=== PATIENT | female | born 1995 | race African-American/Black ===

== ENCOUNTER 2017-07-23 03:00 | Emergency (ER) | payer SELFPAY ==
[~2017-07-23] VITALS: Ht 152.4 cm; Wt 93.6 kg
[~2017-07-23 03:00] MED LIST: CEFTIN500 MG PO; DOXYCYCLINE 10100 MG PO; LEVEMIR100 U/ML SC; NORCO 325 MG-51 TAB PO; NOVOLOG 100U100 U/M1 SQ
[2017-07-23 03:03] VITALS: TEMP 98.6
[2017-07-23] MEDS ORDERED: OMNICEF 300MG300 MG PO (03:07)
[2017-07-23 04:09] LABS: BASO % 0.2 % (0.0-2.0); EOS % 0.1 % (0-4.0); GRAN # 9.1 (1.4-6.5); GRAN % 65.5 % (42.2-75.2); HEMATOCRIT 47.9 % (37.0-47.0); HEMOGLOBIN 15.3 g/dl (12.5-16.0); LYMPH # 3.7 (1.2-3.4); LYMPH % 26.5 % (20.0-51.0); MEAN CELL VOLUME 82 fl (80.0-100.0); MEAN CORPUSCULAR HEMOGLOBIN 26 pg (27.0-31.0); MEAN CORPUSCULAR HGB CONC 32 g/dl (33.0-37.0); MEAN PLATELET VOLUME 9.5 fl (7.4-10.4); MONO % 7.3 % (1.7-9.3); PLATELET COUNT 255 K/mm3 (130-400); RED BLOOD COUNT 5.82 M/mm3 (4.10-5.30); REDCELL DISTRIBUTION WIDTH-CV 12.9 % (11.5-14.5)
[2017-07-23 04:34] LABS: ERYTHROCYTE SEDIMENTATION RATE 7 mm/hr (0-20)
[2017-07-23 04:45] LABS: ALBUMIN 4.5 gm/dL (3.5-5.0); BILIRUBIN,TOTAL 0.4 mg/dL (0.0-1.0); CALCIUM 9.2 mg/dL (8.4-10.2); CREATININE, serum 0.49 mg/dL (0.52-1.25); POTASSIUM 3.9 mmol/L (3.4-5.0); TOTAL PROTEIN 7.7 gm/dL (6.4-8.2)
[2017-07-23] MEDS ORDERED: CLEOCIN HCL300 MG PO (06:36)
[2017-07-23 07:00] VITALS: BP 143/93; PULSE 108
== END 2017-07-23 07:02 | disposition home or self-care (01) ==
LOC: COL.ER 03:00
PROVIDERS: Emergency Medicine
DX: L03.811 Cellulitis of head [any part, except face] (principal); E11.9 Type 2 diabetes mellitus without complications; Z79.4 Long term (current) use of insulin
CPT/HCPCS: J1815; J7030

== ENCOUNTER 2017-07-25 09:25 | Emergency (ER) | payer SELFPAY ==
[~2017-07-25] VITALS: Ht 152.4 cm; Wt 93.6 kg
[~2017-07-25 09:25] MED LIST changes: +CLEOCIN HCL300 MG PO; +OMNICEF 300MG300 MG PO
[2017-07-25 09:32] VITALS: BP 146/88; PULSE 98; TEMP 98.4
== END 2017-07-25 10:16 | disposition home or self-care (01) ==
LOC: COL.ER 09:25
DX: E11.9 Type 2 diabetes mellitus without complications (principal); L03.811 Cellulitis of head [any part, except face]; Z79.4 Long term (current) use of insulin

== ENCOUNTER → 2017-10-10 | Outpatient (CLI) | payer OTHER | LOC: COL.RAD 09:27 | DX: Z02.71 Encounter for disability determination (principal) ==

== ENCOUNTER 2018-11-25 12:38 | Emergency (ER) | payer SELFPAY ==
[~2018-11-25] VITALS: Ht 152.4 cm; Wt 93.2 kg
[2018-11-25 12:45] VITALS: TEMP 97.9
[2018-11-25 13:15] LABS: COLLECTION METHOD CLEAN CATCH
[2018-11-25 13:24] LABS: MUCOUS Present /lpf; PH 5 (5-8); SQUAMOUS EPITHELIAL 0-2 /hpf; URINE APPEARANCE Hazy; URINE BACTERIA None Seen /hpf; URINE BILIRUBIN Negative (NEGATIVE); URINE BLOOD 1+ (NEGATIVE); URINE COLOR Straw; URINE GLUCOSE 3+ (NEGATIVE); URINE KETONE Negative (NEGATIVE); URINE LEUKOCYTE ESTERASE 2+ (NEGATIVE); URINE NITRATE Negative (NEGATIVE); URINE PROTEIN(semi-quant) Negative (NEGATIVE); URINE UROBILINOGEN Negative (NEGATIVE)
[2018-11-25 14:16] LABS: BASO % 0.2 % (0.0-2.0); EOS % 0.4 % (0-4.0); GRAN # 5.8 (1.4-6.5); GRAN % 56.2 % (42.2-75.2); HEMATOCRIT 47.1 % (37.0-47.0); HEMOGLOBIN 14.7 g/dl (12.5-16.0); LYMPH # 3.7 (1.2-3.4); LYMPH % 36.5 % (20.0-51.0); MEAN CELL VOLUME 80 fl (80.0-100.0); MEAN CORPUSCULAR HEMOGLOBIN 25 pg (27.0-31.0); MEAN CORPUSCULAR HGB CONC 31 g/dl (33.0-37.0); MEAN PLATELET VOLUME 9.3 fl (7.4-10.4); MONO # 0.7 (0.1-0.6); MONO % 6.4 % (1.7-9.3); PLATELET COUNT 279 K/mm3 (130-400); REDCELL DISTRIBUTION WIDTH-CV 13.6 % (11.5-14.5)
[2018-11-25 14:31] LABS: BILIRUBIN,TOTAL 0.2 mg/dL (0.0-1.0); C-REACTIVE PROTEIN 0.8 mg/dL (0.0-0.9); CALCIUM 9.4 mg/dL (8.4-10.2); CREATININE, serum 0.44 (0.52-1.25); POTASSIUM 4.3 mmol/L (3.4-5.0); TOTAL PROTEIN 7.3 gm/dL (6.4-8.2)
[2018-11-25] MEDS ORDERED: DIFLUCAN150 MG PO (14:39)
[2018-11-25] MEDS ORDERED: MACROBID 1100 MG/CAP PO (14:39)
[2018-11-25] MEDS ORDERED: NYSTATIN POWDER30 GM TOP (14:42)
[2018-11-25 15:19] VITALS: BP 116/68; PULSE 98
== END 2018-11-25 15:25 | disposition home or self-care (01) ==
LOC: COL.ER 12:38
PROVIDERS: Physician Assistant
DX: B37.3 Candidiasis of vulva and vagina (principal); N30.90 Cystitis, unspecified without hematuria; L30.4 Erythema intertrigo; E11.65 Type 2 diabetes mellitus with hyperglycemia; Z79.4 Long term (current) use of insulin; Z86.19 Personal history of other infectious and parasitic diseases; Z88.0 Allergy status to penicillin

== ENCOUNTER 2020-09-05 03:42 | Observation (INO) | payer OTHER, MEDICAID ==
[2020-09-05] VITALS (13 sets, daily range): BP systolic 124–146; BP diastolic 68–106; PULSE 81–92; TEMP 98
[~2020-09-05] VITALS: Ht 154.9 cm; Wt 75.0 kg
[~2020-09-05 03:42] MED LIST changes: +DIFLUCAN150 MG PO; +K-DUR 10 MEQ T10 MEQ PO; +MACROBID 1100 MG/CAP PO; +NYSTATIN POWDER30 GM TOP
[2020-09-05 04:25] LABS: BASO % 0.3 % (0.0-2.0); EOS % 0.7 % (0-4.0); GRAN # 2.6 (1.4-6.5); GRAN % 43.9 % (42.2-75.2); HEMATOCRIT 37.3 % (37.0-47.0); HEMOGLOBIN 11.6 g/dl (12.5-16.0); LYMPH # 2.8 (1.2-3.4); LYMPH % 47.1 % (20.0-51.0); MEAN CELL VOLUME 88 fl (80.0-100.0); MEAN CORPUSCULAR HEMOGLOBIN 27 pg (27.0-31.0); MEAN CORPUSCULAR HGB CONC 31 g/dl (33.0-37.0); MEAN PLATELET VOLUME 8.5 fl (7.4-10.4); MONO # 0.5 (0.1-0.6); MONO % 7.8 % (1.7-9.3); PLATELET COUNT 334 K/mm3 (130-400); RED BLOOD COUNT 4.26 M/mm3 (4.10-5.30); REDCELL DISTRIBUTION WIDTH-CV 13.9 % (11.5-14.5)
[2020-09-05 04:36] LABS: ALBUMIN 3.5 gm/dL (3.5-5.0); BILIRUBIN,TOTAL 0.1 mg/dL (0.0-1.0); CALCIUM 8.2 mg/dL (8.4-10.2); CREATININE, serum 0.54 (0.52-1.25); POTASSIUM 3.4 mmol/L (3.4-5.0); TOTAL PROTEIN 6.4 gm/dL (6.4-8.2)
[2020-09-05] MEDS ORDERED: MOTRIN 800800 MG/TAB PO (05:46)
--- NOTE | 2020-09-05 06:10 | NUR ---
Patient to operating room via stretcher from emergency room.
--- NOTE | 2020-09-05 09:20 | NUR ---
Initial visit; Patient thanked Assistant Professor Of [employer] for looking in on her and offering God's blessings and for looking in on her.
--- NOTE | 2020-09-05 09:47 | NUR ---
0900 SITS UP IN BED EATING BREASKFAST. TOLERATES WELL. AMBULATE TO BATHRROM VOIDS LARGE AMOUNT, BLEEDING WNL. 0930 ALL DISCHARGE INSTRUCTIONS GIVEN TO PATIENT AND . VERBAL UNDERSTANDING NOTED.
--- NOTE | 2020-09-05 10:14 | NUR ---
1000 patient ambulate to pov with nurse
== END 2020-09-05 10:00 | disposition home or self-care (01) ==
LOC: COL.ER 03:42 → OB 05:40
PROVIDERS: Emergency Medicine; ADMIT Obstetrics & Gynecology
DX: O72.2 Delayed and secondary postpartum hemorrhage (principal); O90.1 Disruption of perineal obstetric wound; Z98.84 Bariatric surgery status; Z90.49 Acquired absence of other specified parts of digestive tract; Z88.0 Allergy status to penicillin; Z88.1 Allergy status to other antibiotic agents; Z79.899 Other long term (current) drug therapy
CPT/HCPCS: G0378; J0330; J0690; J1885; J2405; J2704; J3010; J7030

== ENCOUNTER 2020-12-03 08:23 | Emergency (ER) | payer OTHER, MEDICAID ==
[~2020-12-03] VITALS: Ht 152.4 cm; Wt 72.7 kg
[~2020-12-03 08:23] MED LIST changes: +MOTRIN 800800 MG/TAB PO
[2020-12-03 09:12] LABS: STREP SCREEN NEGATIVE
[2020-12-03 09:40] VITALS: BP 131/72; PULSE 73
== END 2020-12-03 09:40 | disposition home or self-care (01) ==
LOC: COL.ER 08:23
PROVIDERS: Emergency Medicine
DX: J06.9 Acute upper respiratory infection, unspecified (principal)
CPT/HCPCS: J1100

== ENCOUNTER 2023-05-01 07:16 | Emergency (ER) | payer BC ==
[~2023-05-01] VITALS: Ht 157.5 cm; Wt 85.0 kg
[~2023-05-01 07:16] MED LIST changes: +FORTAMET500 M1 PO; +LEVAQUIN 750MG750 M1 PO
[2023-05-01 07:25] VITALS: TEMP 102.1
[2023-05-01] MEDS ORDERED: PAXLOVID CO-PA1 EACH PO (08:08)
[2023-05-01] MEDS ORDERED: ZOFRAN ODT4 MG PO (08:08)
[2023-05-01 08:23] VITALS: BP 119/79; PULSE 115
== END 2023-05-01 08:20 | disposition home or self-care (01) ==
LOC: COL.ER 07:16
DX: U07.1 COVID-19 (principal); J32.9 Chronic sinusitis, unspecified; M79.10 Myalgia, unspecified site; R00.0 Tachycardia, unspecified